=== PATIENT | female | born 1955 | race Caucasian/White ===

== ENCOUNTER 2018-03-27 13:58 | Emergency (ER) | payer MEDICARE, MEDICAID ==
[~2018-03-27] VITALS: Ht 162.6 cm; Wt 81.7 kg
[~2018-03-27 13:58] MED LIST: AZIT250T PO; BENZ-16 PO
[2018-03-27] MEDS ORDERED: TETanus/Pertussis (Acell)/Diphther VAC/PF (Tdap-Adult) 0.5ml syringe IM ONE (15:15)
[2018-03-27] MEDS ORDERED: IBUP-1986 PO (15:45)
[2018-03-27] MEDS ORDERED: ibuprofen tablet 400 MG TABLET PO ONE (15:45)
[2018-03-27 15:52] VITALS: BP 135/74
== END 2018-03-27 15:54 | disposition home or self-care (01) ==
LOC: ER 13:58
DX: S61.211A Laceration without foreign body of left index finger without damage to nail, initial encounter (principal); J45.909 Unspecified asthma, uncomplicated; Z79.899 Other long term (current) drug therapy; W45.8XXA Other foreign body or object entering through skin, initial encounter; Y93.89 Activity, other specified; Y92.89 Other specified places as the place of occurrence of the external cause; Y99.8 Other external cause status
CPT/HCPCS: 29130; 90471; 90715; 99283

== ENCOUNTER 2018-06-30 03:38 | Emergency (ER) | payer MEDICARE, MEDICAID ==
[~2018-06-30] VITALS: Ht 162.6 cm; Wt 75.0 kg
[~2018-06-30 03:38] MED LIST changes: +IBUP-1986 PO
[2018-06-30 03:44] VITALS: BP 154/96
[2018-06-30] MEDS ORDERED: albuterol 2.5 MG/3 ML nebule NEB ONE (04:00)
[2018-06-30] MEDS: predniSONE 20 mg tablet PO ONE ×2 (04:08→04:13)
[2018-06-30] MEDS ORDERED: methylPREDNISolone sod succ 125mg/2ml vial IV ONE (04:15)
[2018-06-30] MEDS ORDERED: ALBU8HFA PO (04:45)
[2018-06-30] MEDS ORDERED: PRED15SO23 PO (04:45)
== END 2018-06-30 04:55 | disposition home or self-care (01) ==
LOC: ER 03:38
DX: J44.1 Chronic obstructive pulmonary disease with (acute) exacerbation (principal); I10 Essential (primary) hypertension; M79.7 Fibromyalgia; Z98.890 Other specified postprocedural states; Z90.89 Acquired absence of other organs; Z98.51 Tubal ligation status; Z79.899 Other long term (current) drug therapy
CPT/HCPCS: 71045; 93005; 94640; 94760; 96374; 99284; J2930; J7512